=== PATIENT | male | born 1935 | race Caucasian/White ===

== ENCOUNTER 2016-06-26 05:41 | Inpatient (IN) | payer MEDICARE ==
--- NOTE | 2016-06-25 18:14 | MH ---
cc: GELA SAEZ MD, ROHIT K. M.D. DATE OF ADMISSION: 06/26/2016 ADMITTING DIAGNOSIS: Lumbar wound drainage. HISTORY OF PRESENT ILLNESS: This is a 80-year-old male who underwent a lumbar L2, L3, L4 and L5 decompressive laminectomy with laminectomy with medial facetectomy on 05/14/2016. He did well afterwards with improvement in his claudication symptoms. He had the sonja removed from his back and his incision was healing up well. He was then seen last week on 06/19/2016 stating that he had developed "puffiness" the length of the incision. He said that he had noticed this progressively getting worse over a week. He denied any lifting, pushing, or pulling type activity. He was not on any anticoagulation. He denies any headaches, fever or chills at that time. There was no drainage from the incision. The patient used a heating pad and two days after he was seen at that visit, he states that a small opening occurred in the incision and it drained out clear to serosanguineous type of fluid. He says that the puffiness subsequently resolved. However, he has been have been steady drainage since it opened up. He, although, has not had any chronic type headaches, he has had a few episodes of headaches that did not last very long. He denies any other neurological changes. PAST MEDICAL HISTORY: His past medical history is significant for: 1. Hypertension. 2. Hyperlipidemia. 3. Benign prostatic hypertrophy. 4. Spinal implant and removal. 5. Morphine pump placement and removal. 6. Right hand carpal tunnel and ulnar tunnel release. 7. He has a history of prostate cancer. 8. Age-related macular degeneration. 9. Lumbar L2, L3, L4 and L5 decompressive laminectomy with medial facetectomy on 05/14/2016. CURRENT MEDICATIONS: 1. Metoprolol 5 milligrams daily. 2. Lisinopril 40 milligrams twice a day. 3. Clonidine 0.1 milligram PRN systolic blood pressure greater than 150. 4. Spironolactone / hydrochlorothiazide 25/25 one tablet every other day. 5. Lipitor 40 milligrams at bedtime. 6. Flomax 1000 micrograms /mL two times a day. ALLERGIES: The patient reports allergies to: 1. PENICILLIN. 2. EFFEXOR. 3. LYRICA. 4. CYMBALTA. 5. BACLOFEN. 6. OXYCONTIN. FAMILY HISTORY: His mother is at 89 years old of Alzheimer's disease. His father is at 69 years OLD of heart disease. He has a sister who is at 82 years old of kidney disease. He has a brother who is at 75 years old with myocardial infarction. 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 He is . He has children. He quit smoking in 1977. He does not drink alcohol. REVIEW OF SYSTEMS CONSTITUTIONAL: He denies any fever or chills. EARS, NOSE AND THROAT: No pharyngitis, exudates or bloody drainage from his nose. CARDIOVASCULAR: He denies any chest pain or palpitations. RESPIRATORY: No cough or shortness of breath. GENITOURINARY: No dysuria or hematuria. MUSCULOSKELETAL: Positive for weakness in his lower extremities. SKIN: No rashes or pruritus. He has drainage from his lumbar incision that has opened up approximately 2 mm and the superior one-third of the incision. NEUROLOGIC: No difficulty with speech or memory. GASTROINTESTINAL: No nausea or vomiting or abdominal pain. PSYCHIATRIC: No anxiety or depression symptoms. ENDOCRINE: No polyuria or polydipsia. HEMATOLOGIC: Positive for bruising but no bleeding tendencies. PHYSICAL EXAMINATION HEAD: Normocephalic, atraumatic. NECK: Supple. No carotid bruits heard on auscultation. LUNGS: Clear to auscultation bilaterally. HEART: Regular rate and rhythm. Normal sinus S1-S2. ABDOMEN: Soft, nontender. Positive bowel sounds. SKIN: Reveals no cyanosis or erythema. He has a small 2 mm opening in the superior one-third of the incision. There is no tenderness with palpation of the incision. There is no surrounding erythema. No purulent drainage. He does have clear to serous type drainage on the bandage. MUSCULOSKELETAL: He has weakness especially distally with bilateral foot drop, left more than right at 2/5. He ambulates with a walker. He has generalized atrophy in his lower extremities. NEUROLOGIC: He is awake, alert and oriented. Cranial nerves II through XII are grossly intact. Speech is fluent. Comprehension is good. Sensation, he states, is intact to light touch in his lower extremities. IMPRESSION A 80-year-old male who is now six weeks status post L2-L5 decompressive lumbar laminectomy for severe spinal stenosis with associated intractable back pain and neurogenic claudication. His back pain and neurogenic claudication symptoms have essentially resolved. He has chronic lower extremity weakness and atrophy from his stenosis. He has developed a small area of seromatous drainage, which has been intermittent but persistent for the last four days. He has noticed some headaches a couple of days ago but none recently and denies any fever or chills. PLAN: We have discussed treatment options and he has done well from his lumbar decompression with resolution of his back pain and neurogenic claudication symptoms but has developed a serosanguineous type drainage and a small area that is open in the incision site. We have recommended and incision and debridement, especially to rule out any pseudomeningocele that may need to be repaired. We have recommended this to be done as soon as possible. The patient understands and requests that we proceed and he was therefore scheduled accordingly. Dictated by Hang Burnett PA-C MD AMY Aguero/GEORGE /5:26 PM /5:59 PM
[~2016-06-26] VITALS: Ht 171.4 cm; Wt 81.6 kg
[~2016-06-26 05:41] MED LIST: ASPI-110 PO; CLON0.1T PO; DILA2TAB2 PO; LIPI40TA PO; LISI40TA PO; METO100T9 PO; SPIR25TA3 PO; TAMS5CAP PO
[2016-06-26] MEDS ORDERED: METOPROLOL TARTRATE 25 MG TAB PO PRN (06:30)
[2016-06-26] MEDS ORDERED: LACTATED RINGER'S 1000 ML IV SCH (06:30)
[2016-06-26] MEDS ORDERED: SODIUM CHLORID 0.9% 500 ML IV SCH (06:30)
[2016-06-26] MEDS ORDERED: INSULIN HUMAN REGULAR 1,000 UNITS/10 ML VIAL SQ PRN (06:30)
[2016-06-26 07:53] VITALS: BP 140/72; PULSE 79; RESP 18; TEMP 98.3; O2SAT 97
[2016-06-26] MEDS ORDERED: MAGNESIUM SULFATE INJ 2 GM in SODIUM CHLORIDE 0.9% INJ 100 ML IV PRN ×2 (08:30→11:15)
[2016-06-26] MEDS ORDERED: MENTHOL LOZENGE SUCK-ON PRN ×2 (08:30→11:15)
[2016-06-26] MEDS ORDERED: POTASSIUM CHLOR 20 MEQ PREMIX 100 ML IV PRN ×2 (08:30→11:15)
[2016-06-26] MEDS ORDERED: CYCLOBENZAPRINE HCL 10 MG TAB PO PRN ×2 (08:30→11:15)
[2016-06-26] MEDS ORDERED: MAGNESIUM HYDROXIDE SUSP 30 ML CUP PO PRN (08:30)
[2016-06-26] MEDS ORDERED: BISACODYL 10 MG SUPP PR PRN (08:30)
[2016-06-26] MEDS ORDERED: RESP: ALBUTEROL 2.5 MG/3 ML NEB (PRN) NEB ×2 (08:30→11:15)
[2016-06-26] MEDS ORDERED: CALCIUM GLUCONATE INJ 1 GM in SODIUM CHLORIDE 0.9% INJ 100 ML IV PRN ×2 (08:30→11:15)
[2016-06-26] MEDS ORDERED: ACETAMINOPHEN 325 MG TAB PO PRN ×2 (08:30→11:15)
[2016-06-26] MEDS ORDERED: VANCOMYCIN INJ 1,000 MG in SODIUM CHLOR 0.9% 250 ML INJ 250 ML IV SCH ×2 (08:30→21:00)
[2016-06-26] MEDS ORDERED: ALUMINUM/MAGNESIUM/SIMETH 30 ML CUP PO PRN ×2 (08:30→11:15)
[2016-06-26] MEDS ORDERED: MORPHINE SULFATE 4 MG/ML INJ IV PRN ×3 (08:30→11:15)
[2016-06-26] MEDS ORDERED: SODIUM CHLORIDE 0.9% FLUSH 5 ML FLUSH IVF PRN ×2 (08:30→11:15)
[2016-06-26] MEDS ORDERED: cloNIDine HCL 0.1 MG TAB PO PRN (08:30)
[2016-06-26] MEDS ORDERED: ONDANSETRON HCL 4 MG/2 ML VIAL IV PRN ×2 (08:30→11:15)
[2016-06-26] MEDS: PANTOPRAZOLE SOD 40 MG DELAYED RELEASE TAB PO SCH (09:00)
[2016-06-26] MEDS: DOCUSATE SODIUM 100 MG CAP PO SCH ×3 (09:00→20:42)
[2016-06-26] MEDS ORDERED: SODIUM CHLOR 0.9% 250 ML INJ 250 ML ONE (09:01)
[2016-06-26] MEDS ORDERED: VANCOMYCIN HCL 1000 MG VIAL ONE ×2 (09:01→10:03)
[2016-06-26 09:16] LABS: AUTOMATED NEUTROPHIL # 11.2 TH/MM3 (1.8-7.7); BASOPHIL # 0.1 TH/MM3 (0-0.2); BASOPHIL % 0.6 % (0.0-2.0); HEMATOCRIT 37.9 % (39.0-51.0); HEMO FLAGS DIFF FINAL; LYMPHOCYTE # 0.9 TH/MM3 (1.0-4.8); MEAN CELL VOLUME 94.2 FL (80.0-100.0); MEAN CORPUSCULAR HEMOGLOBIN 32.1 PG (27.0-34.0); MEAN CORPUSCULAR HGB CONC 34.1 % (32.0-36.0); MONO % 9.2 % (0.0-8.0); NEUT % 83.2 % (16.0-70.0); PLATELET COUNT 213 TH/MM3 (150-450); RED BLOOD COUNT 4.02 MIL/MM3 (4.50-5.90); RED CELL DISTRIBUTION WIDTH 13.6 % (11.6-17.2); WHITE BLOOD COUNT 13.5 TH/MM3 (4.0-11.0)
[2016-06-26 09:17] LABS: APTT (PATIENT) 29.7 SEC (24.3-30.1); INTERNATIONAL NORMALIZED RATIO 1.1 RATIO
[2016-06-26 09:43] LABS: ALKALINE PHOSPHATASE 88 U/L (45-117); ALT (GPT) 23 U/L (12-78); ANION GAP 9 MEQ/L (5-15); AST (GOT) 29 U/L (15-37); BICARBONATE 27.1 MEQ/L (21.0-32.0); BLOOD UREA NITROGEN 22 MG/DL (7-18); CHLORIDE 102 MEQ/L (98-107); GLOMERULAR FILTRATION RATE 68 ML/MIN (>89); POTASSIUM 4.5 MEQ/L (3.5-5.1); SODIUM (NA) 138 MEQ/L (136-145); TOTAL BILIRUBIN ADULT 0.9 MG/DL (0.2-1.0)
[2016-06-26] MEDS ORDERED: PROPOFOL 200 MG/20 ML AMP IV ONE (10:03)
[2016-06-26] MEDS ORDERED: NEOSTIGMINE 3 MG/3 ML SYR IV ONE (10:03)
[2016-06-26] MEDS ORDERED: ONDANSETRON HCL 4 MG/2 ML VIAL IV PUSH ONE (10:03)
[2016-06-26] MEDS ORDERED: BUPIVACAINE/EPINEPHRINE 0.5% 50 ML VIAL ONE (10:03)
[2016-06-26] MEDS ORDERED: ePHEDrine/NS 50 MG/5 ML SYR IV ONE (10:03)
[2016-06-26] MEDS ORDERED: PHENYLEPH/NS 1000 MCG/10 ML SYR IV ONE (10:03)
[2016-06-26] MEDS ORDERED: THROMBIN (TOPICAL) 5,000 UNIT VIAL ONE (10:04)
[2016-06-26] MEDS ORDERED: GELFOAM SIZE 100 ONE (10:04)
[2016-06-26] MEDS ORDERED: NS + KCL 20 MEQ INJ 1,000 ML IV SCH (11:12)
[2016-06-26] MEDS ORDERED: PROMETHAZINE INJ 25 MG/ML VIAL IM PRN (11:15)
[2016-06-26] MEDS ORDERED: HYDROmorphone HCL 2 MG TAB PO PRN (11:15)
[2016-06-26] MEDS ORDERED: ZOLPIDEM TARTRATE 5 MG TAB PO PRN ×2 (11:15→21:00)
[2016-06-26] MEDS ORDERED: fentaNYL CITRATE 250 MCG/5 ML AMP ONE (11:17)
--- NOTE | 2016-06-26 11:23 | PD.OP ---
Operative Report Date of Surgery: Jun 26, 2016 Preoperative Diagnosis: Lumbar wound infection Postoperative Diagnosis: Same Procedure: Lumbar wound incision and debridement the soft tissue and fascia Anesthesia: Gen. endotracheal by Timothy Flores Surgeon: Biju Caro M.D. Tool And Die Engineer(s): Mary Smith Operation and Findings: Following administration of a general endotracheal anesthesia patient had sequential compression devices placed and was turned prone position on Seth frame and the Zelalem table and all pressure points adequately padded. The lumbar region was then prepped with ChloraPrep and surgery without along the usual sterile draping. Previous incision site was infiltrated with a 0.5% Marcaine with epinephrine surgeon skin incision made. Subcutaneous pus pocket was identified and drained extending down to the fascia. Swab Gram stain and cultures were sent and the area copiously irrigated with vancomycin solution and the debridement also undertaken until the tissue is more vascular. No fluid collection or drainage underneath the fascia was identified or extending into the spinal column. A 7 mm SAPNA drain was then placed and exited to separate stab site and secured with 3-0 nylon tie. The skin incision was approximated using 0 Prolene interrupted stitches and a sterile dressing applied. Vancomycin 1 g also administered intravenously. Patient is interested in spine position and extubated and taken recovery room. Estimated blood loss was less than 5 cc Biju Caro MD Jun 26, 2016 11:23
[2016-06-26] MEDS: SODIUM CHLORIDE 0.9% FLUSH 5 ML FLUSH IVF SCH ×3 (11:59→20:42)
[2016-06-26] MEDS ORDERED: DO NOT ADM ANY ANTICOAGULANT DRUGS XX PRN ×3 (12:00→15:15)
[2016-06-26] MEDS: HYDROmorphone HCL 4 MG TAB PO PRN (15:08)
[2016-06-26 16:00] VITALS: BP 114/55; PULSE 74; RESP 16; TEMP 96.2; O2SAT 96
[2016-06-26] MEDS ORDERED: Vancomycin Consult Pharmacy 1 EA OTHER SCH (16:30)
--- NOTE | 2016-06-26 17:12 | MB ---
cc: ROSE GREGORY MD DATE OF CONSULTATION: 06/26/2016 REQUESTING PHYSICIAN: Dr. Caro. REASON FOR CONSULTATION: Lumbar wound infection. HISTORY OF PRESENT ILLNESS This is a 80-year-old white male who recently underwent L2, L3, L4 and L5 decompressive laminectomy by microsurgical technique. The patient was treated for severe spinal stenosis. He subsequently developed drainage from his lumbar wound and also had some swelling in the surgical area. The patient was brought into the hospital for further management. He underwent lumbar wound incision and debridement of the soft tissue and fascia today. Cultures were taken. This consultation is requested for antibiotic management. The patient is currently somnolent but in no acute distress. He is responsive and communicates appropriately when awakened. He is afebrile. He describes having pain currently at a scale 8/10 level in the back. The gram stain from the surgical wound has moderate gram-positive cocci in pairs and chains. He has no fever. PAST MEDICAL HISTORY 1. Hyperlipidemia 2. Hypertension. 3. There is benign prostatic hypertrophy 4. History of spinal implant 5. History of morphine pump 6. History of prostate cancer 7. Macular degeneration ALLERGIES PENICILLIN OXYCODONE. BACLOFEN CYMBALTA LYRICA MEDICATIONS: He takes medications. 1. Vancomycin 2. Levaquin. 3. Protonix 4. Toprol XL 5. Aldactone 6. Lipitor 7. Ecotrin 8. Lovenox 9. Colace 10 Dilaudid p.r.n. SOCIAL HISTORY No tobacco use currently, the patient is a former smoker. No alcohol use. FAMILY HISTORY Noncontributory. REVIEW OF SYSTEMS Review of systems negative on 10-point review except for back pain. PHYSICAL EXAMINATION IN GENERAL: This is a slender well-developed male in no acute distress. He is awake but somnolent. VITAL SIGNS: Include temperature of 98.2, BP 110/68, respirations 16, HR 64. HEAD, EYES, EARS, NOSE, AND THROAT: Head atraumatic. Extraocular movements grossly intact, pupils reactive to light without icterus. Oropharynx no visible lesions. NECK: Supple without adenopathy. LUNGS: Slight rhonchi at the bases. HEART: Regular rate and rhythm without murmurs or rubs or gallops. ABDOMEN: Bowel sounds present, soft, nontender. BACK: Lumbar region and the surgical wound with a dressing over the wound and a catheter exiting the wound bed which has serosanguineous drainage. There is no swelling at the site of the dressing. RECTUM: Rectal: Not performed. EXTREMITIES: No clubbing or cyanosis or edema. SKIN: No rash. NEUROLOGIC: Nonfocal. PSYCHIATRIC: The patient is calm and cooperative. LABORATORY DATA WBC 50.5, platelets 213, 83% neutrophils, hemoglobin 12.9, creatinine 1.06, BUN 22, sodium 138. IMPRESSION Lumbar wound infection in patient who is status post lumbar laminectomy approximately 5 weeks ago. RECOMMENDATIONS 1. Continue vancomycin 2. Continue Levaquin 3. Monitor wound cultures for antibiotic adjustments depending on the wound culture. 4. The patient will require 2-3 weeks antibiotics. Thank you this consultation. I will monitor the patient's progress and will make further recommendations on followup. Rose Gregory MD FD/nabila /4:17 PM /5:02 PM MTDBety
[2016-06-26 20:35] VITALS: BP 98/58; PULSE 65; RESP 19; TEMP 96.8; O2SAT 100
[2016-06-26] MEDS: TAMSULOSIN HCL 0.4 MG CAP PO SCH (20:42)
[2016-06-26] MEDS: LISINOPRIL 20 MG TAB PO SCH (20:42)
[2016-06-27] VITALS (10 sets, daily range): BP systolic 112–156; BP diastolic 63–96; PULSE 74–91; RESP 17–20; TEMP 95.7–99.3; O2SAT 97–100
[2016-06-27] MEDS: VANCOMYCIN INJ 1,200 MG in SODIUM CHLOR 0.9% 250 ML INJ 250 ML IV SCH ×2 (00:08→18:10)
[2016-06-27] MEDS: HYDROmorphone HCL 4 MG TAB PO PRN ×3 (00:12→16:00)
[2016-06-27] MEDS: PANTOPRAZOLE SOD 40 MG DELAYED RELEASE TAB PO SCH ×2 (09:00→09:34)
[2016-06-27] MEDS: LISINOPRIL 20 MG TAB PO SCH ×2 (09:00→21:48)
[2016-06-27] MEDS: DOCUSATE SODIUM 100 MG CAP PO SCH ×4 (09:00→21:47)
[2016-06-27] MEDS: METOPROLOL SUCCINATE 50 MG EXTENDED RELEASE TAB PO SCH (09:00)
[2016-06-27] MEDS: SPIRONOLACTONE/HCTZ 25 MG/25 MG TAB PO SCH (09:00)
[2016-06-27] MEDS: LEVOFLOXACIN 750 MG TAB PO SCH (09:33)
[2016-06-27] MEDS: TAMSULOSIN HCL 0.4 MG CAP PO SCH ×2 (09:33→21:48)
[2016-06-27] MEDS: ATORVASTATIN 20 MG TAB PO SCH (09:35)
[2016-06-27] MEDS: ASPIRIN EC 81 MG TABEC PO SCH (09:35)
[2016-06-27 09:44] LABS: AUTOMATED NEUTROPHIL # 9.2 TH/MM3 (1.8-7.7); BASOPHIL % 0.3 % (0.0-2.0); EOSINOPHIL # 0.1 TH/MM3 (0-0.4); EOSINOPHIL % 0.9 % (0.0-4.0); HEMATOCRIT 37.5 % (39.0-51.0); HEMO FLAGS DIFF FINAL; LYMPH % 9.1 % (9.0-44.0); MEAN CELL VOLUME 96.2 FL (80.0-100.0); MEAN CORPUSCULAR HEMOGLOBIN 32.2 PG (27.0-34.0); MEAN CORPUSCULAR HGB CONC 33.4 % (32.0-36.0); NEUT % 82.7 % (16.0-70.0); PLATELET COUNT 176 TH/MM3 (150-450); WHITE BLOOD COUNT 11.1 TH/MM3 (4.0-11.0)
[2016-06-27] MEDS: ENOXAPARIN SODIUM 40 MG/0.4 ML SYRINGE SQ SCH (09:53)
[2016-06-27] MEDS ORDERED: PNEUMOCOCCAL POLYVALENT INJ 25 MCG/0.5 ML SYR IM ONE (10:00)
[2016-06-27 10:03] LABS: BICARBONATE 25.6 MEQ/L (21.0-32.0); MAGNESIUM 1.8 MG/DL (1.5-2.5); POTASSIUM 4.6 MEQ/L (3.5-5.1)
--- NOTE | 2016-06-27 12:21 | HHI.NSPN ---
(Hang Burnett) History Chief Complaint: Incisional soreness. (Hang Burnett) Interval History 06/27/16: Pt awake and more alert. Complains of incisional back pain. No radiculopathy in LEs. Pt has weakness in LEs. Denies feeling feverish or chills. (Hang Burnett) Review of Systems General: Negative for: fever, chills, insomnia Respiratory: Negative for: shortness of breath, cough, sputum Cardiovascular: Negative for: chest pain Gastrointestinal: Negative for: nausea, vomitting, diarrhea, constipation ( Hang Burnett) Exam Results Vital Signs Date Time Temp Pulse Resp B/P Pulse Ox O2 Delivery O2 Flow Rate FiO2 06/27/16 08:50 98 3.00 06/27/16 08:00 95.7 84 18 128/68 06/27/16 01:36 Nasal Cannula Intake and Output 06/26/16 06/26/16 06/27/16 08:00 16:00 00:00 Intake Total 900 ml Output Total 630 ml Balance 900 ml -630 ml (Hang Burnett) Physical Examination Resp: CTA bilaterally Heart: NSR no murmurs Abd: Soft positive bs Skin: Incision bandage changes by nurses- clean Muscle: Moves LEs with weakness 2/5 plantar, dorsiflexion, and knee extension. Iliopsoas strength 3-/5. Neuro: Pt awakens to voice. Follows commands well. Pt a little lethargic but hold a conversation. Speech appropriate. (Hang Burnett) Lab, Micro, Other Results Laboratory Tests Test 06/27/16 08:36 White Blood Count 11.1 TH/MM3 Red Blood Count 3.90 MIL/MM3 Hemoglobin 12.5 GM/DL Hematocrit 37.5 % Mean Corpuscular Volume 96.2 FL Mean Corpuscular Hemoglobin 32.2 PG Mean Corpuscular Hemoglobin 33.4 % Concent Red Cell Distribution Width 14.0 % Platelet Count 176 TH/MM3 Mean Platelet Volume 8.8 FL Neutrophils (%) (Auto) 82.7 % Lymphocytes (%) (Auto) 9.1 % Monocytes (%) (Auto) 7.0 % Eosinophils (%) (Auto) 0.9 % Basophils (%) (Auto) 0.3 % Neutrophils # (Auto) 9.2 TH/MM3 Lymphocytes # (Auto) 1.0 TH/MM3 Monocytes # (Auto) 0.8 TH/MM3 Eosinophils # (Auto) 0.1 TH/MM3 Basophils # (Auto) 0.0 TH/MM3 CBC Comment DIFF FINAL Differential Comment Sodium Level 139 MEQ/L Potassium Level 4.6 MEQ/L Chloride Level 106 MEQ/L Carbon Dioxide Level 25.6 MEQ/L Anion Gap 7 MEQ/L Blood Urea Nitrogen 19 MG/DL Creatinine 0.83 MG/DL Estimat Glomerular Filtration 90 ML/MIN Rate Random Glucose 87 MG/DL Calcium Level 8.6 MG/DL Phosphorus Level 2.1 MG/DL Magnesium Level 1.8 MG/DL 06/26/16 06/26/16 06/27/16 15:00 23:00 07:00 Intake Total 900 ml 500 ml Output Total 630 ml 20 ml Balance 900 ml -630 ml 480 ml Intake IV Total 50 ml 500 ml Other 850 ml Output Urine Total 600 ml Drainage Total 30 ml 20 ml # Voids 1 1 (Hang Burnett) Medical Decision Making Impression and Plan A: 80 y/o M s/p incision and drainage of lumbar wound. P: Continue to monitor Continue with PT Continue with antibiotics. (Hang Burnett) Attending Statement The exam, history, and the medical decision-making described in the above note were completed with the assistance of the mid-level provider. I reviewed and agree with the findings presented. I attest that I had a [id number] encounter with the patient on the same day, and personally performed and documented my assessment and findings in the medical record. (Biju Caro MD) Hang Burnett Jun 27, 2016 12:21 Biju Caro MD Jun 27, 2016 15:08
[2016-06-27] MEDS: SODIUM CHLORIDE 0.9% FLUSH 5 ML FLUSH IVF SCH ×2 (21:00)
[2016-06-28] VITALS (8 sets, daily range): BP systolic 134–163; BP diastolic 76–99; PULSE 73–98; RESP 18–20; TEMP 97–99.3; O2SAT 91–94
[2016-06-28] MEDS: SODIUM CHLOR 0.9% 1000 ML INJ 1,000 ML IV SCH ×2 (01:30→20:54)
[2016-06-28] MEDS: HYDROmorphone HCL 4 MG TAB PO PRN ×3 (04:36→20:53)
--- NOTE | 2016-06-28 08:17 | HHI.NSPN ---
(Hang Burnett) History Chief Complaint: Incisional soreness. (Hang Burnett) Interval History 06/27/16: Pt awake and more alert. Complains of incisional back pain. No radiculopathy in LEs. Pt has weakness in LEs. Denies feeling feverish or chills. 06/28/16: Pt awakens to voice. Complains of incisional soreness. Some confusion but pleasant. No radiculopathy in LEs. (Hang Burnett) Review of Systems General: Negative for: fever, chills, insomnia Respiratory: Negative for: shortness of breath, cough, sputum Cardiovascular: Negative for: chest pain Gastrointestinal: Negative for: nausea, vomitting, diarrhea, constipation ( Hang Burnett) Exam Results Vital Signs Date Time Temp Pulse Resp B/P Pulse Ox O2 Delivery O2 Flow Rate FiO2 06/28/16 04:25 97.0 95 20 163/77 93 06/27/16 08:50 3.00 06/27/16 01:36 Nasal Cannula Intake and Output 06/27/16 06/27/16 06/28/16 08:00 16:00 00:00 Intake Total 500 ml 480 ml Output Total 20 ml 200 ml 210 ml Balance 480 ml -200 ml 270 ml (Hang Burnett) Physical Examination Resp: CTA bilaterally Heart: NSR no murmurs Abd: Soft positive bs Skin: Pt log rolled onto his side. Incision clean and dry with retention sutures in place. SAPNA drain in place. New bandage applied. Muscle: Moves LEs with weakness 2/5 plantar, dorsiflexion, and knee extension. Iliopsoas strength 3-/5. Neuro: Pt awakens to voice. Follows commands well. Pt a little lethargic but hold a conversation. Speech appropriate. (Hang Burnett) Lab, Micro, Other Results Laboratory Tests Test 06/27/16 08:36 White Blood Count 11.1 TH/MM3 Red Blood Count 3.90 MIL/MM3 Hemoglobin 12.5 GM/DL Hematocrit 37.5 % Mean Corpuscular Volume 96.2 FL Mean Corpuscular Hemoglobin 32.2 PG Mean Corpuscular Hemoglobin 33.4 % Concent Red Cell Distribution Width 14.0 % Platelet Count 176 TH/MM3 Mean Platelet Volume 8.8 FL Neutrophils (%) (Auto) 82.7 % Lymphocytes (%) (Auto) 9.1 % Monocytes (%) (Auto) 7.0 % Eosinophils (%) (Auto) 0.9 % Basophils (%) (Auto) 0.3 % Neutrophils # (Auto) 9.2 TH/MM3 Lymphocytes # (Auto) 1.0 TH/MM3 Monocytes # (Auto) 0.8 TH/MM3 Eosinophils # (Auto) 0.1 TH/MM3 Basophils # (Auto) 0.0 TH/MM3 CBC Comment DIFF FINAL Differential Comment Sodium Level 139 MEQ/L Potassium Level 4.6 MEQ/L Chloride Level 106 MEQ/L Carbon Dioxide Level 25.6 MEQ/L Anion Gap 7 MEQ/L Blood Urea Nitrogen 19 MG/DL Creatinine 0.83 MG/DL Estimat Glomerular Filtration 90 ML/MIN Rate Random Glucose 87 MG/DL Calcium Level 8.6 MG/DL Phosphorus Level 2.1 MG/DL Magnesium Level 1.8 MG/DL 06/27/16 06/27/16 06/28/16 15:00 23:00 07:00 Intake Total 480 ml Output Total 200 ml 10 ml 215 ml Balance -200 ml -10 ml 265 ml Intake Oral 480 ml Output Urine Total 200 ml 200 ml Drainage Total 10 ml 15 ml # Bowel Movements 0 (Hang Burnett) Medical Decision Making Impression and Plan A: 80 y/o M s/p incision and drainage of lumbar wound. P: Continue to monitor Continue with PT Continue with antibiotics. (Hang Burnett) Attending Statement The exam, history, and the medical decision-making described in the above note were completed with the assistance of the mid-level provider. I reviewed and agree with the findings presented. I attest that I had a [id number] encounter with the patient on the same day, and personally performed and documented my assessment and findings in the medical record. Incision site clean and dry and minimal SAPNA drain output. We'll continue with the antibiotics as per infectious disease. Discontinue SAPNA drain tomorrow. Increase activity physical therapy and rehabilitation placement over next few days. Discussed with at bedside. (Biju Caro MD) Hang Burnett Jun 28, 2016 08:17 Biju Caro MD Jun 28, 2016 11:45
[2016-06-28] MEDS: SPIRONOLACTONE/HCTZ 25 MG/25 MG TAB PO SCH (09:00)
[2016-06-28] MEDS: TAMSULOSIN HCL 0.4 MG CAP PO SCH ×2 (09:00→20:53)
[2016-06-28] MEDS: LEVOFLOXACIN 750 MG TAB PO SCH (09:00)
[2016-06-28] MEDS: ATORVASTATIN 20 MG TAB PO SCH (09:00)
[2016-06-28] MEDS: PANTOPRAZOLE SOD 40 MG DELAYED RELEASE TAB PO SCH ×2 (09:00)
[2016-06-28] MEDS: ASPIRIN EC 81 MG TABEC PO SCH (09:00)
[2016-06-28] MEDS: METOPROLOL SUCCINATE 50 MG EXTENDED RELEASE TAB PO SCH (09:00)
[2016-06-28] MEDS: LISINOPRIL 20 MG TAB PO SCH ×2 (09:00→20:53)
[2016-06-28] MEDS: SODIUM CHLORIDE 0.9% FLUSH 5 ML FLUSH IVF SCH ×3 (09:00→20:54)
[2016-06-28] MEDS: DOCUSATE SODIUM 100 MG CAP PO SCH ×3 (09:00→20:54)
[2016-06-28] MEDS: ENOXAPARIN SODIUM 40 MG/0.4 ML SYRINGE SQ SCH (10:00)
[2016-06-28] MEDS ORDERED: PHARMACY ORDERED LAB XX ONE (11:45)
[2016-06-28] MEDS: VANCOMYCIN INJ 1,200 MG in SODIUM CHLOR 0.9% 250 ML INJ 250 ML IV SCH (12:28)
[2016-06-28] MEDS: MAGNESIUM HYDROXIDE SUSP 30 ML CUP PO PRN (20:53)
[2016-06-29] VITALS (11 sets, daily range): BP systolic 147–199; BP diastolic 73–97; PULSE 65–137; RESP 16–20; TEMP 97.1–98.6; O2SAT 92–98
[2016-06-29] MEDS: cloNIDine HCL 0.1 MG TAB PO PRN (04:41)
[2016-06-29] MEDS: HYDROmorphone HCL 4 MG TAB PO PRN ×5 (04:41→22:45)
[2016-06-29] MEDS: VANCOMYCIN INJ 1,500 MG in SODIUM CHLORID 0.9% 500 ML INJ 500 ML IV SCH ×2 (05:53→23:55)
[2016-06-29] MEDS: SODIUM CHLOR 0.9% 1000 ML INJ 1,000 ML IV SCH ×2 (07:30→17:50)
[2016-06-29] MEDS: DOCUSATE SODIUM 100 MG CAP PO SCH ×4 (09:00→20:09)
[2016-06-29] MEDS: ATORVASTATIN 20 MG TAB PO SCH (09:25)
[2016-06-29] MEDS: LISINOPRIL 20 MG TAB PO SCH ×2 (09:25→20:08)
[2016-06-29] MEDS: PANTOPRAZOLE SOD 40 MG DELAYED RELEASE TAB PO SCH ×2 (09:26→09:31)
[2016-06-29] MEDS: SPIRONOLACTONE/HCTZ 25 MG/25 MG TAB PO SCH (09:27)
[2016-06-29] MEDS: ASPIRIN EC 81 MG TABEC PO SCH (09:27)
[2016-06-29] MEDS: TAMSULOSIN HCL 0.4 MG CAP PO SCH ×2 (09:27→20:09)
[2016-06-29] MEDS: METOPROLOL SUCCINATE 50 MG EXTENDED RELEASE TAB PO SCH (09:27)
[2016-06-29] MEDS: ENOXAPARIN SODIUM 40 MG/0.4 ML SYRINGE SQ SCH (09:28)
[2016-06-29] MEDS: LEVOFLOXACIN 750 MG TAB PO SCH (09:28)
[2016-06-29] MEDS: SODIUM CHLORIDE 0.9% FLUSH 5 ML FLUSH IVF SCH ×4 (09:28→20:08)
--- NOTE | 2016-06-29 09:43 | HHI.NSPN ---
History Chief Complaint: Incisional soreness. Interval History 06/27/16: Pt awake and more alert. Complains of incisional back pain. No radiculopathy in LEs. Pt has weakness in LEs. Denies feeling feverish or chills. 06/28/16: Pt awakens to voice. Complains of incisional soreness. Some confusion but pleasant. No radiculopathy in LEs. 06/29/16: Pt awake and continues to be more alert everyday. Complains of incisional soreness. No radiculopathy or paresthesias in Les. Review of Systems General: Negative for: fever, chills, insomnia Respiratory: Negative for: shortness of breath, cough, sputum Cardiovascular: Negative for: chest pain Gastrointestinal: Negative for: nausea, vomitting, diarrhea, constipation Exam Results Vital Signs Date Time Temp Pulse Resp B/P Pulse Ox O2 Delivery O2 Flow Rate FiO2 06/29/16 08:45 98.3 67 16 147/81 96 06/28/16 09:37 21 06/27/16 08:50 3.00 06/27/16 01:36 Nasal Cannula Intake and Output 06/28/16 06/28/16 06/29/16 08:00 16:00 00:00 Intake Total 840 ml 480 ml Output Total 415 ml 100 ml 325 ml Balance -415 ml 740 ml 155 ml Physical Examination Resp: CTA bilaterally Heart: NSR no murmurs Abd: Soft positive bs Skin: Pt log rolled onto his side. Incision clean and dry with retention sutures in place. SAPNA drain in place. New bandage applied. Muscle: Moves LEs with weakness 2/5 plantar, dorsiflexion, and knee extension. Iliopsoas strength 3-/5. Neuro: Pt awake more alert today. Follows commands well. Speech appropriate. Lab, Micro, Other Results Laboratory Tests Test 06/28/16 12:00 Vancomycin Level Trough 9.3 MCG/ML 06/28/16 06/28/16 06/29/16 15:00 23:00 07:00 Intake Total 840 ml 480 ml 240 ml Output Total 500 ml 325 ml 505 ml Balance 340 ml 155 ml -265 ml Intake Oral 840 ml 480 ml 240 ml Output Urine Total 500 ml 325 ml 500 ml Drainage Total 5 ml # Bowel Movements 0 Medical Decision Making Impression and Plan A: 80 y/o M s/p incision and drainage of lumbar wound. P: Continue to monitor Continue with PT Continue with antibiotics. D/C SAPNA drain today. Hang Burnett Jun 29, 2016 09:43
--- NOTE | 2016-06-29 13:41 | HHI.IDPN ---
Note Infectious Disease Note Patient feels okay. Notes pain at 8/10 scale in back. Afebrile. No chills. This is a 80-year-old white male who recently underwent L2, L3, L4 and L5 decompressive laminectomy by microsurgical technique. The patient was treated for severe spinal stenosis. He subsequently developed drainage from his lumbar wound and also had some swelling in the surgical area. PAST MEDICAL HISTORY 1. Hyperlipidemia 2. Hypertension. 3. There is benign prostatic hypertrophy 4. History of spinal implant 5. History of morphine pump 6. History of prostate cancer 7. Macular degeneration ALLERGIES PENICILLIN OXYCODONE. BACLOFEN CYMBALTA LYRICA Current Medications Medications (Trade) Dose Ordered Sig/Khushboo Route PRN Reason Start Time Stop Time Status Last Admin Dose Admin Lactated Ringer's 1,000 ml @ 30 mls/hr Q24H IV 06/26/16 06:30 06/26/16 07:49 Sodium Chloride (NS 1000 ml Inj) 1,000 ml @ 100 mls/hr Q10H IV 06/26/16 09:30 06/29/16 07:30 IV Flush (NS Flush) 2 ml BID IVF 06/26/16 09:00 06/29/16 09:28 Docusate Sodium (Colace) 100 mg BID PO 06/26/16 09:00 06/29/16 09:26 Pantoprazole Sodium (Protonix) 40 mg DAILY PO 06/26/16 09:00 06/29/16 09:26 Aspirin (Ecotrin Ec) 81 mg DAILY PO 06/27/16 09:00 06/29/16 09:27 Atorvastatin Calcium (Lipitor) 20 mg DAILY PO 06/27/16 09:00 06/29/16 09:25 Lisinopril (Prinivil) 40 mg BID PO 06/26/16 21:00 06/29/16 09:25 HCTZ/ Spironolactone (Aldactazide 25-25 Mg) 1 tab DAILY PO 06/27/16 09:00 06/29/16 09:27 Tamsulosin HCl (Flomax) 0.4 mg BID PO 06/26/16 21:00 06/29/16 09:27 Metoprolol Succinate (Toprol Xl) 50 mg DAILY PO 06/27/16 09:00 06/29/16 09:27 IV Flush (NS Flush) 2 ml UNSCH PRN IVF FLUSH AFTER USING IV ACCESS 06/26/16 11:15 IV Flush (NS Flush) 2 ml BID IVF 06/26/16 21:00 06/29/16 09:28 Enoxaparin Sodium (Lovenox Inj) 40 mg Q24H SQ 06/27/16 10:00 06/29/16 09:28 Bisacodyl (Dulcolax Supp) 10 mg DAILY PRN [place] CONSTIPATION 06/26/16 11:15 Docusate Sodium (Colace) 100 mg BID PO 06/26/16 21:00 06/28/16 20:53 Magnesium Hydroxide (Milk Of Magnesia Liq) 30 ml DAILY PRN PO CONSTIPATION 06/26/16 11:15 06/28/16 20:53 Al Hydrox/Mg Hydrox/Simethicone (Mag-Al Plus Susp Liq) 30 ml Q6H PRN PO DYSPEPSIA 06/26/16 11:15 Pantoprazole Sodium (Protonix) 40 mg DAILY PO 06/27/16 09:00 Ondansetron HCl (Zofran Inj) 4 mg Q6H PRN IV NAUSEA OR VOMITING 06/26/16 11:15 Promethazine HCl 25 mg 25 mg Q4H PRN IM NAUSEA OR VOMITING 06/26/16 11:15 Calcium Gluconate 1 gm/Sodium Chloride 110 ml @ 110 mls/hr UNSCH PRN IV SEE LABEL COMMENTS 06/26/16 11:15 Potassium Chloride 100 ml @ 50 mls/hr UNSCH PRN IV POTASSIUM LESS THAN 4 06/26/16 11:15 Magnesium Sulfate/ Sodium Chloride (Magnesium Sulfate Inj/NS Inj) 104 ml @ 100 mls/hr UNSCH PRN IV MAGNESIUM LESS THAN 2 06/26/16 11:15 Morphine Sulfate (Morphine Inj) 4 mg Q2H PRN IV breakthrough pain 7 TO 10 06/26/16 11:15 Cyclobenzaprine HCl (Flexeril) 10 mg Q8H PRN PO MUSCLE SPASM 06/26/16 11:15 Clonidine (Catapres) 0.1 mg Q6H PRN PO SYS BP GREATER THAN 170 MMHG 06/26/16 11:15 06/29/16 04:41 Acetaminophen (Tylenol) 650 mg Q4H PRN PO TEMPERATURE > 101.5 F 06/26/16 11:15 Menthol ([place] Ben) 1 lozenge UNSCH PRN SUCK-ON SORE THROAT 06/26/16 11:15 Zolpidem Tartrate (Ambien) 5 mg HS PRN PO INSOMNIA 06/26/16 11:15 Hydromorphone HCl (Dilaudid) 2 mg Q4H PRN PO pain 1-6 06/26/16 11:15 Hydromorphone HCl (Dilaudid) 4 mg Q4H PRN PO pain 7-10 06/26/16 11:15 06/29/16 13:19 Levofloxacin 750 mg 750 mg DAILY PO 06/27/16 09:00 06/29/16 09:28 Pharmacy Profile Note 0 ml @ 0 mls/hr UNSCH OTHER 06/26/16 16:30 Vancomycin HCl/ Sodium Chloride (Vancomycin Inj/ NS 500 ml Inj) 515 ml @ 250 mls/hr Q18H IV 06/29/16 06:00 06/29/16 05:53 Miscellaneous Information SPECIFIC LAB TO BE DRAWN:VANCO TROUGH DATE TO... ONCE ONCE XX 06/30/16 17:45 06/30/16 17:46 SOCIAL HISTORY No tobacco use currently, the patient is a former smoker. No alcohol use. FAMILY HISTORY Noncontributory. REVIEW OF SYSTEMS Review of systems negative on 10-point review except for back pain. OBJECTIVE: Vital Signs Date Time Temp Pulse Resp B/P Pulse Ox O2 Delivery O2 Flow Rate FiO2 06/29/16 12:35 98.2 68 16 169/83 95 06/29/16 10:30 16 06/29/16 09:46 96 21 06/29/16 08:45 98.3 67 16 147/81 96 06/29/16 05:55 69 158/73 06/29/16 05:50 70 176/89 06/29/16 04:00 97.7 80 20 199/97 94 06/29/16 00:29 97.1 70 18 151/80 92 06/28/16 23:13 73 06/28/16 20:25 97.8 74 20 153/80 94 06/28/16 16:00 98.0 73 20 134/81 93 06/28/16 06/28/16 06/29/16 15:00 23:00 07:00 Intake Total 840 ml 480 ml 240 ml Output Total 500 ml 325 ml 505 ml Balance 340 ml 155 ml -265 ml Intake Oral 840 ml 480 ml 240 ml Output Urine Total 500 ml 325 ml 500 ml Drainage Total 5 ml # Bowel Movements 0 PHYSICAL EXAMINATION IN GENERAL: No acute distress. Awake but Appears drowsy. HEAD, EYES, EARS, NOSE, AND THROAT: Head atraumatic. Extraocular movements grossly intact, pupils reactive to light without icterus. Oropharynx no visible lesions. NECK: Supple without adenopathy. LUNGS: Slight rhonchi at the bases. HEART: Regular rate and rhythm without murmurs or rubs or gallops. ABDOMEN: Bowel sounds present, soft, nontender. BACK: Lumbar region and the surgical wound with a dressing over the wound and a catheter exiting the wound bed which has serosanguineous drainage. There is no swelling at the site of the dressing. EXTREMITIES: No clubbing or cyanosis or edema. SKIN: No rash. NEUROLOGIC: Nonfocal. PSYCHIATRIC: The patient is calm and cooperative. IMPRESSION Lumbar wound infection in patient who is status post lumbar laminectomy. Group B Beta strep. Post lumbar wound drainage. RECOMMENDATIONS 1. Continue vancomycin 2. Stop Levaquin 3. Start Ceftriaxone. 4. PIC line/midline. 5. If he tolerates Ceftriaxone, will give IV outpatient x 2 weeks. Otherwise will have to use Vancomycin IV instead. Esa Avila MD Jun 29, 2016 13:41
[2016-06-29] MEDS: cefTRIAXone INJ 2,000 MG in SODIUM CHLORIDE 0.9% INJ 100 ML IV SCH (14:43)
[2016-06-30] VITALS (9 sets, daily range): BP systolic 130–188; BP diastolic 72–91; PULSE 62–80; RESP 18–20; TEMP 98.3–98.8; O2SAT 94–97
[2016-06-30] MEDS: cloNIDine HCL 0.1 MG TAB PO PRN ×3 (02:01→23:49)
[2016-06-30] MEDS: SODIUM CHLOR 0.9% 1000 ML INJ 1,000 ML IV SCH ×2 (03:52→12:31)
[2016-06-30] MEDS: HYDROmorphone HCL 4 MG TAB PO PRN ×4 (03:53→23:49)
[2016-06-30] MEDS: DOCUSATE SODIUM 100 MG CAP PO SCH ×4 (09:00→20:39)
[2016-06-30] MEDS: PANTOPRAZOLE SOD 40 MG DELAYED RELEASE TAB PO SCH (09:14)
[2016-06-30] MEDS: TAMSULOSIN HCL 0.4 MG CAP PO SCH ×2 (09:15→20:39)
[2016-06-30] MEDS: ATORVASTATIN 20 MG TAB PO SCH (09:15)
[2016-06-30] MEDS: LISINOPRIL 20 MG TAB PO SCH ×2 (09:15→20:39)
[2016-06-30] MEDS: ENOXAPARIN SODIUM 40 MG/0.4 ML SYRINGE SQ SCH (09:16)
[2016-06-30] MEDS: METOPROLOL SUCCINATE 50 MG EXTENDED RELEASE TAB PO SCH (09:16)
[2016-06-30] MEDS: MAGNESIUM HYDROXIDE SUSP 30 ML CUP PO PRN (09:16)
[2016-06-30] MEDS: ASPIRIN EC 81 MG TABEC PO SCH (09:16)
[2016-06-30] MEDS: SODIUM CHLORIDE 0.9% FLUSH 5 ML FLUSH IVF SCH ×4 (09:16→20:40)
[2016-06-30] MEDS: SPIRONOLACTONE/HCTZ 25 MG/25 MG TAB PO SCH (09:19)
--- NOTE | 2016-06-30 10:53 | HHI.NSPN ---
History Chief Complaint: Incisional soreness. Interval History 06/27/16: Pt awake and more alert. Complains of incisional back pain. No radiculopathy in LEs. Pt has weakness in LEs. Denies feeling feverish or chills. 06/28/16: Pt awakens to voice. Complains of incisional soreness. Some confusion but pleasant. No radiculopathy in LEs. 06/29/16: Pt awake and continues to be more alert everyday. Complains of incisional soreness. No radiculopathy or paresthesias in Les. 06/30/16: Pt awake and alert. Complains of incisional soreness. No radiculopathy or paresthesias in LEs. He states he stood up for a few minutes with PT but was only able to ambulates a short distance. Review of Systems General: Negative for: fever, chills, insomnia Respiratory: Negative for: shortness of breath, cough, sputum Cardiovascular: Negative for: chest pain Gastrointestinal: Negative for: nausea, vomitting, diarrhea, constipation Exam Results Vital Signs Date Time Temp Pulse Resp B/P Pulse Ox O2 Delivery O2 Flow Rate FiO2 06/30/16 10:21 62 06/30/16 10:10 18 06/30/16 09:25 95 21 06/30/16 09:00 98.6 188/91 06/27/16 08:50 3.00 06/27/16 01:36 Nasal Cannula Intake and Output 06/29/16 06/29/16 06/30/16 08:00 16:00 00:00 Intake Total 1440 ml 240 ml 2040 ml Output Total 505 ml 300 ml 200 ml Balance 935 ml -60 ml 1840 ml Physical Examination Resp: CTA bilaterally Heart: NSR no murmurs Abd: Soft positive bs Skin: No cyanosis or erythema. SCDs in place. Muscle: Moves LEs with weakness 2/5 plantar, dorsiflexion, and knee extension. Iliopsoas strength 3-/5. Neuro: Pt awake and alert. Follows commands well. Speech appropriate. Lab, Micro, Other Results 06/29/16 06/29/16 06/30/16 15:00 23:00 07:00 Intake Total 1440 ml 2040 ml Output Total 300 ml 200 ml Balance 1140 ml 1840 ml Intake Oral 240 ml 360 ml IV Total 1200 ml 1680 ml Output Urine Total 300 ml 200 ml # Voids 2 4 Medical Decision Making Impression and Plan A: 80 y/o M s/p incision and drainage of lumbar wound. P: Continue to monitor Continue with PT Continue with antibiotics. Rehab placement when medically stable. Hang Burnett Jun 30, 2016 10:53
[2016-06-30] MEDS: cefTRIAXone INJ 2,000 MG in SODIUM CHLORIDE 0.9% INJ 100 ML IV SCH (12:31)
[2016-06-30] MEDS ORDERED: PHARMACY ORDERED LAB XX ONE (17:45)
[2016-06-30] MEDS: BISACODYL 10 MG SUPP PR PRN (17:46)
--- NOTE | 2016-06-30 17:49 | HHI.IDPN ---
Note Infectious Disease Note Patient feels okay. Notes pain still present in the back but is less. Afebrile. This is a 80-year-old white male who recently underwent L2, L3, L4 and L5 decompressive laminectomy by microsurgical technique. The patient was treated for severe spinal stenosis. He subsequently developed drainage from his lumbar wound and also had some swelling in the surgical area. PAST MEDICAL HISTORY 1. Hyperlipidemia 2. Hypertension. 3. There is benign prostatic hypertrophy 4. History of spinal implant 5. History of morphine pump 6. History of prostate cancer 7. Macular degeneration ALLERGIES PENICILLIN OXYCODONE. BACLOFEN CYMBALTA LYRICA Current Medications Medications (Trade) Dose Ordered Sig/Khushboo Route PRN Reason Start Time Stop Time Status Last Admin Dose Admin Lactated Ringer's 1,000 ml @ 30 mls/hr Q24H IV 06/26/16 06:30 06/26/16 07:49 Sodium Chloride (NS 1000 ml Inj) 1,000 ml @ 100 mls/hr Q10H IV 06/26/16 09:30 06/30/16 12:31 IV Flush (NS Flush) 2 ml BID IVF 06/26/16 09:00 06/30/16 09:16 Docusate Sodium (Colace) 100 mg BID PO 06/26/16 09:00 06/30/16 09:13 Pantoprazole Sodium (Protonix) 40 mg DAILY PO 06/26/16 09:00 06/30/16 09:14 Aspirin (Ecotrin Ec) 81 mg DAILY PO 06/27/16 09:00 06/30/16 09:16 Atorvastatin Calcium (Lipitor) 20 mg DAILY PO 06/27/16 09:00 06/30/16 09:15 Lisinopril (Prinivil) 40 mg BID PO 06/26/16 21:00 06/30/16 09:15 HCTZ/ Spironolactone (Aldactazide 25-25 Mg) 1 tab DAILY PO 06/27/16 09:00 06/30/16 09:19 Tamsulosin HCl (Flomax) 0.4 mg BID PO 06/26/16 21:00 06/30/16 09:15 Metoprolol Succinate (Toprol Xl) 50 mg DAILY PO 06/27/16 09:00 06/30/16 09:16 IV Flush (NS Flush) 2 ml UNSCH PRN IVF FLUSH AFTER USING IV ACCESS 06/26/16 11:15 IV Flush (NS Flush) 2 ml BID IVF 06/26/16 21:00 06/30/16 09:16 Enoxaparin Sodium (Lovenox Inj) 40 mg Q24H SQ 06/27/16 10:00 06/30/16 09:16 Bisacodyl (Dulcolax Supp) 10 mg DAILY PRN [place] CONSTIPATION 06/26/16 11:15 Docusate Sodium (Colace) 100 mg BID PO 06/26/16 21:00 06/28/16 20:53 Magnesium Hydroxide (Milk Of Magnesia Liq) 30 ml DAILY PRN PO CONSTIPATION 06/26/16 11:15 06/30/16 09:16 Al Hydrox/Mg Hydrox/Simethicone (Mag-Al Plus Susp Liq) 30 ml Q6H PRN PO DYSPEPSIA 06/26/16 11:15 Pantoprazole Sodium (Protonix) 40 mg DAILY PO 06/27/16 09:00 Ondansetron HCl (Zofran Inj) 4 mg Q6H PRN IV NAUSEA OR VOMITING 06/26/16 11:15 Promethazine HCl 25 mg 25 mg Q4H PRN IM NAUSEA OR VOMITING 06/26/16 11:15 Calcium Gluconate 1 gm/Sodium Chloride 110 ml @ 110 mls/hr UNSCH PRN IV SEE LABEL COMMENTS 06/26/16 11:15 Potassium Chloride 100 ml @ 50 mls/hr UNSCH PRN IV POTASSIUM LESS THAN 4 06/26/16 11:15 Magnesium Sulfate/ Sodium Chloride (Magnesium Sulfate Inj/NS Inj) 104 ml @ 100 mls/hr UNSCH PRN IV MAGNESIUM LESS THAN 2 06/26/16 11:15 Morphine Sulfate (Morphine Inj) 4 mg Q2H PRN IV breakthrough pain 7 TO 10 06/26/16 11:15 Cyclobenzaprine HCl (Flexeril) 10 mg Q8H PRN PO MUSCLE SPASM 06/26/16 11:15 Clonidine (Catapres) 0.1 mg Q6H PRN PO SYS BP GREATER THAN 170 MMHG 06/26/16 11:15 06/30/16 12:30 Acetaminophen (Tylenol) 650 mg Q4H PRN PO TEMPERATURE > 101.5 F 06/26/16 11:15 Menthol ([place] Ben) 1 lozenge UNSCH PRN SUCK-ON SORE THROAT 06/26/16 11:15 Zolpidem Tartrate (Ambien) 5 mg HS PRN PO INSOMNIA 06/26/16 11:15 Hydromorphone HCl (Dilaudid) 2 mg Q4H PRN PO pain 1-6 06/26/16 11:15 Hydromorphone HCl 4 mg 4 mg Q4H PRN PO pain 7-10 06/26/16 11:15 06/30/16 09:14 Pharmacy Profile Note 0 ml @ 0 mls/hr UNSCH OTHER 06/26/16 16:30 Vancomycin HCl/ Sodium Chloride (Vancomycin Inj/ NS 500 ml Inj) 515 ml @ 250 mls/hr Q18H IV 06/29/16 06:00 06/29/16 23:55 Miscellaneous Information SPECIFIC LAB TO BE DRAWN:VANCO TROUGH DATE TO... ONCE ONCE XX 06/30/16 17:45 06/30/16 17:46 Ceftriaxone Sodium/Sodium Chloride (Rocephin Inj/NS Inj) 100 ml @ 200 mls/hr Q24H IV 06/29/16 14:00 06/30/16 12:31 SOCIAL HISTORY No tobacco use currently, the patient is a former smoker. No alcohol use. FAMILY HISTORY Noncontributory. REVIEW OF SYSTEMS Review of systems negative on 10-point review except for back pain. OBJECTIVE: Vital Signs Date Time Temp Pulse Resp B/P Pulse Ox O2 Delivery O2 Flow Rate FiO2 06/30/16 16:29 98.6 63 18 130/72 97 06/30/16 12:25 98.6 64 18 171/86 94 06/30/16 10:21 62 06/30/16 10:10 18 06/30/16 09:25 95 21 06/30/16 09:00 98.6 69 18 188/91 94 06/30/16 04:00 98.7 64 18 155/82 96 06/30/16 00:00 98.8 68 20 179/79 94 06/29/16 20:00 77 06/29/16 20:00 137 06/29/16 20:00 98.6 67 20 173/81 98 06/29/16 18:33 94 21 06/29/16 06/29/16 06/30/16 15:00 23:00 07:00 Intake Total 1440 ml 2040 ml Output Total 300 ml 200 ml Balance 1140 ml 1840 ml Intake Oral 240 ml 360 ml IV Total 1200 ml 1680 ml Output Urine Total 300 ml 200 ml # Voids 2 4 PHYSICAL EXAMINATION IN GENERAL: No acute distress. Awake and alert. HEAD, EYES, EARS, NOSE, AND THROAT: Head atraumatic. Extraocular movements grossly intact, pupils reactive to light without icterus. Oropharynx no visible lesions. NECK: Supple without adenopathy. LUNGS: Slight rhonchi at the bases. HEART: Regular rate and rhythm without murmurs or rubs or gallops. ABDOMEN: nontender. BACK: Lumbar region and the surgical wound with a dressing over the wound. EXTREMITIES: No clubbing or cyanosis or edema. SKIN: No rash. NEUROLOGIC: Nonfocal. PSYCHIATRIC: The patient is calm and cooperative. IMPRESSION Lumbar wound infection in patient who is status post lumbar laminectomy. Group B Beta strep. Post lumbar wound drainage. RECOMMENDATIONS Ceftriaxone IV x 2 weeks outpatient. Case management to arrange. Esa Avila MD Jun 30, 2016 17:49
--- NOTE | 2016-06-30 17:52 | HHI.FF ---
Infusion Therapy Location of Infusion Therapy: [facility] IV Infusion Order Patient Information Patient Weight 81.8 kg Diagnosis: Diagnosis Lumbar wound infection. Coded Allergies: Amlodipine (Verified Allergy, Unknown, 06/25/16) "I DON'T KNOW". PT DENIES ALLERGY Baclofen (Verified Allergy, Unknown, 06/25/16) WORSENS PAIN Cymbalta (Verified Allergy, Unknown, 06/25/16) WORSENS PAIN Effexor (Verified Allergy, Unknown, 06/25/16) WORSENS PAIN Lyrica (Verified Allergy, Unknown, 06/25/16) WORSENS PAIN Oxycodone (Verified Allergy, Unknown, 06/25/16) WORSENS PAIN Penicillin (Verified Allergy, Unknown, 06/25/16) RASH Hydrocodone (Unverified Adverse Reaction, Severe, WORSENS PAIN, 06/25/16) Oxycontin (Unverified Adverse Reaction, Severe, WORSENS PAIN, 06/25/16) Administer Medication Ceftriaxone 2 grams IV q 24 hours Stop Treatment: Jul 14, 2016 Additional Information Venous access: Other Additional Instructions [x] Peripheral flush and dressing changes per protocol [x] Implanted port and central online retailer: * Implanted port: 10 ml Normal Saline followed by 5 ml Heparin 100 units/ml Heparin flush after each use and monthly to maintain. [] May leave port accessed during therapy. [] May leave peripheral site accessed for duration of therapy. [x] If patient has SOB or respiratory distress, check oxygen saturation. If less than 90% or clinical signs of respiratory distress, administer oxygen at 2 L/min. via nasal cannula and notify physician. [x] Anaphylaxis/Reaction orders: * Stop infusion. * Keep IV line open with saline flush. * Notify physician. * Monitor vital signs every 15 minutes until symptoms resolve. * Check Oxygen saturation; Oxygen at 2 L/min. via nasal cannula if less than 90% or clinical signs of respiratory distress. * Administer diphenhydramine (Benadryl) 25 mg IV STAT, (unless patient has received as pre-med). May repeat once, if necessary. * Solu-Cortef 250 mg IVP over 30-60 seconds, use 100 mg vials for each dissolution. * Epinephrine (1mg/1 ml) 0.3 mg subcutaneously or IVP now with any signs of respiratory distress. * Check with physician for new additional pre-med orders if patient is re- challenged or re-treated. [x] May remove PICC line when treatment complete, after confirming with Physician. [x] If the patient is admitted to the hospital, the ED, or transferred via [facility] , complete transfer form including medication reconciliation order sheet. Esa Avila MD Jun 30, 2016 17:51
[2016-06-30 22:29] LABS: BICARBONATE 25.1 MEQ/L (21.0-32.0); POTASSIUM 3.3 MEQ/L (3.5-5.1)
[2016-07-01] VITALS (9 sets, daily range): BP systolic 133–202; BP diastolic 66–104; PULSE 62–79; RESP 18–19; TEMP 97.2–99.4; O2SAT 95–98
[2016-07-01] MEDS: SODIUM CHLOR 0.9% 1000 ML INJ 1,000 ML IV SCH ×3 (02:40→20:45)
[2016-07-01] MEDS: HYDROmorphone HCL 4 MG TAB PO PRN ×2 (05:12→20:44)
[2016-07-01] MEDS: cloNIDine HCL 0.1 MG TAB PO PRN ×2 (05:12→16:44)
[2016-07-01] MEDS ORDERED: DILA2TAB2 PO (08:28)
[2016-07-01] MEDS ORDERED: CEFT2INJ IM (08:30)
[2016-07-01] MEDS ORDERED: CEFT2INJ2 IV (08:31)
[2016-07-01] MEDS: DOCUSATE SODIUM 100 MG CAP PO SCH ×2 (09:00→20:44)
[2016-07-01] MEDS: SODIUM CHLORIDE 0.9% FLUSH 5 ML FLUSH IVF SCH ×2 (09:00→20:45)
[2016-07-01] MEDS: TAMSULOSIN HCL 0.4 MG CAP PO SCH ×2 (09:57→20:44)
[2016-07-01] MEDS: ASPIRIN EC 81 MG TABEC PO SCH (09:57)
[2016-07-01] MEDS: ATORVASTATIN 20 MG TAB PO SCH (09:57)
[2016-07-01] MEDS: LISINOPRIL 20 MG TAB PO SCH ×2 (09:57→20:44)
[2016-07-01] MEDS: SPIRONOLACTONE/HCTZ 25 MG/25 MG TAB PO SCH (09:57)
[2016-07-01] MEDS: METOPROLOL SUCCINATE 50 MG EXTENDED RELEASE TAB PO SCH (09:57)
[2016-07-01] MEDS: PANTOPRAZOLE SOD 40 MG DELAYED RELEASE TAB PO SCH (09:57)
[2016-07-01] MEDS: ENOXAPARIN SODIUM 40 MG/0.4 ML SYRINGE SQ SCH (10:04)
[2016-07-01] MEDS: cefTRIAXone INJ 2,000 MG in SODIUM CHLORIDE 0.9% INJ 100 ML IV SCH (16:44)
[2016-07-02 00:08] VITALS: BP 148/74; PULSE 72; RESP 19; TEMP 99.7; O2SAT 96
[2016-07-02 04:52] VITALS: BP 154/70; PULSE 63; RESP 18; TEMP 98.4; O2SAT 94
[2016-07-02] MEDS: SODIUM CHLOR 0.9% 1000 ML INJ 1,000 ML IV SCH (05:30)
[2016-07-02 08:13] VITALS: BP 144/82; PULSE 70; RESP 20; TEMP 98.7; O2SAT 92
[2016-07-02] MEDS: SODIUM CHLORIDE 0.9% FLUSH 5 ML FLUSH IVF SCH (09:00)
[2016-07-02] MEDS: TAMSULOSIN HCL 0.4 MG CAP PO SCH (09:45)
[2016-07-02] MEDS: ENOXAPARIN SODIUM 40 MG/0.4 ML SYRINGE SQ SCH (09:45)
[2016-07-02] MEDS: SPIRONOLACTONE/HCTZ 25 MG/25 MG TAB PO SCH (09:45)
[2016-07-02] MEDS: PANTOPRAZOLE SOD 40 MG DELAYED RELEASE TAB PO SCH (09:46)
[2016-07-02] MEDS: METOPROLOL SUCCINATE 50 MG EXTENDED RELEASE TAB PO SCH (09:46)
[2016-07-02] MEDS: DOCUSATE SODIUM 100 MG CAP PO SCH (09:46)
[2016-07-02] MEDS: ATORVASTATIN 20 MG TAB PO SCH (09:46)
[2016-07-02] MEDS: ASPIRIN EC 81 MG TABEC PO SCH (09:46)
[2016-07-02] MEDS: LISINOPRIL 20 MG TAB PO SCH (09:46)
[2016-07-02] MEDS: HYDROmorphone HCL 4 MG TAB PO PRN (09:51)
--- NOTE | 2016-07-02 10:49 | HHI.NSPN ---
History Chief Complaint: Incisional soreness. Interval History 06/27/16: Pt awake and more alert. Complains of incisional back pain. No radiculopathy in LEs. Pt has weakness in LEs. Denies feeling feverish or chills. 06/28/16: Pt awakens to voice. Complains of incisional soreness. Some confusion but pleasant. No radiculopathy in LEs. 06/29/16: Pt awake and continues to be more alert everyday. Complains of incisional soreness. No radiculopathy or paresthesias in Les. 06/30/16: Pt awake and alert. Complains of incisional soreness. No radiculopathy or paresthesias in LEs. He states he stood up for a few minutes with PT but was only able to ambulates a short distance. 07/02/16: Pt awake and alert. Complains of incisional soreness. No radiculopathy or paresthesias in LEs. Pt feels constipated this morning. He had BMs yesterday. Review of Systems General: Negative for: fever, chills, insomnia Respiratory: Negative for: shortness of breath, cough, sputum Cardiovascular: Negative for: chest pain Gastrointestinal: Positive for: constipation, Negative for: nausea, vomitting , diarrhea Exam Results Vital Signs Date Time Temp Pulse Resp B/P Pulse Ox O2 Delivery O2 Flow Rate FiO2 07/02/16 08:13 98.7 70 20 144/82 92 06/30/16 09:25 21 Intake and Output 07/01/16 07/01/16 07/02/16 08:00 16:00 00:00 Intake Total 480 ml Output Total 550 ml Balance -70 ml Physical Examination Resp: CTA bilaterally Heart: NSR no murmurs Abd: Soft positive bs Skin: No cyanosis or erythema. SCDs in place. Muscle: Moves LEs with weakness 2/5 plantar, dorsiflexion, and knee extension. Iliopsoas strength 3-/5. Neuro: Pt awake and alert. Follows commands well. Speech appropriate. Lab, Micro, Other Results 1/07/01/16 07/02/16 15:00 23:00 07:00 Intake Total 480 ml 480 ml Output Total 550 ml Balance -70 ml 480 ml Intake Oral 480 ml 480 ml Output Urine Total 550 ml # Voids 1 1 # Bowel Movements 1 2 Medical Decision Making Impression and Plan A: 80 y/o M s/p incision and drainage of lumbar wound. P: Rehab placement Suture removal 2 weeks post op. Hang Burnett Jul 02, 2016 10:49
[2016-07-02] MEDS: BISACODYL 10 MG SUPP PR PRN (11:13)
[2016-07-23] MEDS ORDERED: DILA2TAB2 PO (13:09)
--- NOTE | 2016-08-08 20:25 | HHI.DS ---
Discharge Summary Admission Date Jun 26, 2016 at 08:44 Discharge Date: Jul 02, 2016 Admitting Diagnosis (1) Low back pain Diagnosis: Principal ICD Code: M54.5 (2) Peripheral neuropathy Diagnosis: Secondary ICD Code: G62.9 (3) Lumbar spondylolysis Diagnosis: Principal ICD Code: M43.06 (4) Lumbar stenosis with neurogenic claudication Diagnosis: Principal ICD Code: M48.06 (5) Lumbar degenerative disc disease Diagnosis: Principal ICD Code: M51.36 (6) Scoliosis of lumbar spine Diagnosis: Principal ICD Code: M41.9 (7) Facet arthropathy, lumbar Diagnosis: Principal ICD Code: M12.88 (8) S/P lumbar laminectomy Diagnosis: Principal ICD Code: Z98.890 Procedures Lumbar wound incision and debridement of soft tissue and fascia by Dr. Caro on 06/26/16. Brief History this is a 80 y/o M who underwent a lumbar L2, L3, L4, and L5 decompressive laminectomy with medial facetectomy on 05/14/16. He did well afterwards with improvement in his claudication symptoms. he had the sonja removed from his back and his incision was healing up well. He was then seen last week on stating that he had developed "puffiness" the length of the incision. He said that he had noticed this progressively getting worse over a week. He denied any lifting, pushing, or pulling type activity. He was not on any anticoagulation. he denies any headaches, fever, or chills at that time. there was no drainage from the incision. The patient used a heating pad and two days after he was seen at that visit, carol tates that a small opening occureed in the incision and it drained out clear to serosanguineous type of fluid. He says that savita puffiness subsequently resolved. However, he has been having steady drainage since it opened up. He has not had any chronictype headaches and has had a few episode of headaches that did not last year long. He denies any other neurological changes. Hospital Course Pt was admitted for the above noted procedure performed by Dr. Caro. There was no intraoperative complications. Pt was noted to have infection during the surgery and cultures grew out Group B beta strep. He was seen by infectious disease and placed on antibiotics. PT was consulted and his activity was increased. Pt had frequent bandage changes in the hospital. He was transferred to rehab in stable condition on antibiotics. Pt Condition on Discharge: Stable Discharge Disposition: Discharge to SNF Discharge Instructions DIET: Follow Instructions for: As Tolerated, No Restrictions ACTIVITIES You can perform: Shower Only-No Bath Activities to Avoid: Strenuous Activity, Bathing, Driving Follow up Referrals: Appointment for Follow Up - 2 Weeks New Medications: Ceftriaxone Inj (Ceftriaxone Inj) 2 Gm/50 Ml Bagp 2 GM IV Q24H Infection Days 12 Ref 0 BAG Continued Medications: Aspirin DR (Aspirin 81) 81 Mg Tabdr 81 MG PO DAILY Ref 0 TAB Atorvastatin (Lipitor) 40 Mg Tab 20 MG PO DAILY Cholesterol Management #30 Ref 0 TAB Clonidine (Clonidine) 0.1 Mg Tab 0.1 MG PO D PRN BP>150 SYSTOLIC #60 Ref 0 TAB Lisinopril (Lisinopril) 40 Mg Tab 40 MG PO BID Blood Pressure Management #30 Ref 0 TAB Metoprolol Succinate ER 24 HR (Metoprolol Succinate ER 24 HR) 100 Mg Tab 50 MG PO DAILY #30 Ref 0 TAB Spironolactone-Hydrochlorothiazide (Spironolactone-Hydrochlorothiazide) 25-25 Mg Tab 1 TAB PO MO,WE,FR M W F #30 Ref 0 TAB Tamsulosin (Flomax) 0.4 Mg Cap 0.4 MG PO BID Manage Prostate Problems #30 Ref 0 CAP Hang Burnett Aug 08, 2016 20:25
== END 2016-07-02 12:40 | DRG 858 ==
LOC: HSDC 05:41 → HSDI 08:44 → N05B 14:45
PROVIDERS: ADMIT Neurological Surgery; ATTEND Neurological Surgery
PROC: 0JD70ZZ Extraction of Back Subcutaneous Tissue and Fascia, Open Approach (ICD-10-PCS; 2016-06-26)
PROC: 0J970ZZ Drainage of Back Subcutaneous Tissue and Fascia, Open Approach (ICD-10-PCS; principal; 2016-06-26 09:59)
DX: T81.4XXA Infection following a procedure, initial encounter (principal); I10 Essential (primary) hypertension; E78.5 Hyperlipidemia, unspecified; B95.1 Streptococcus, group B, as the cause of diseases classified elsewhere; H35.30 Unspecified macular degeneration; N40.0 Benign prostatic hyperplasia without lower urinary tract symptoms; K59.00 Constipation, unspecified; Z85.46 Personal history of malignant neoplasm of prostate; Z87.891 Personal history of nicotine dependence; Z88.5 Allergy status to narcotic agent; Z88.0 Allergy status to penicillin; Z88.8 Allergy status to other drugs, medicaments and biological substances; Z23 Encounter for immunization; Y83.8 Other surgical procedures as the cause of abnormal reaction of the patient, or of later complication, without mention of misadventure at the time of the procedure
CPT/HCPCS: 36569; 76937; 80048; 80053; 80202; 83735; 84100; 85025; 85610; 85730; 86403; 87015; 87070; 87102; 87116; 87205; 87206; 90732; 94150; J0696; J1650; J2370; J2405; J2710; J3010; J3370; J3480; J7030; J7040; J7050; J7120